=== PATIENT | male | born 1955 | race Caucasian/White ===

== ENCOUNTER 2019-10-09 02:12 | Inpatient (IN) ==
[2019-10-09] MEDS ORDERED: NS 0.9% 1000 ml BAG 1,000 ML IV ONE ×2 (02:22→03:06)
[2019-10-09] MEDS ORDERED: Heparin - STEMI 5,000 UNITS/ML 1 ml VIAL IV ONE ×2 (03:06→03:08)
[2019-10-09] MEDS ORDERED: nitroGLYCERIN DRIP 25,000 MCG in Premix IV 0 ML IV ONE (03:06)
[2019-10-09] MEDS ORDERED: nitroGLYCERIN DRIP 0 MCG/0 ML BTL ONE (03:09)
[2019-10-09 03:26] LABS: ABS Basophils 0.1 10^3/ul (0-0.2); ABS Lymphocytes 0.6 10^3/ul (1.0-4.8); ABS Monocytes 1.4 10^3/ul (0-0.8); Eosinophil % 0.1 %; Hematocrit 40 % (42-52); Hemoglobin 13.9 g/dL (14.0-18.0); Lymphocyte % 4.8 %; Mean Corpuscular HGB Conc 35 g/dL (31-36); Mean Corpuscular Hemoglobin 29 pg (27-31); Mean Corpuscular Volume 85 fL (80-94); Platelet Count 377 10^3/uL (150-450); Red Blood Count 4.77 10^6 /uL (4.18-5.48); Red Cell Distribution Width 13 % (10-15); White Blood Count 12.9 10^3/uL (3.5-10.8)
[2019-10-09] MEDS ORDERED: Heparin 2 UNITS/ML 1000 mls 0 ML IV ONE (03:30)
[2019-10-09] MEDS ORDERED: nitroGLYCERIN DRIP 25,000 MCG/250 ML BTL ONE (03:30)
[2019-10-09] MEDS ORDERED: VERAPAMIL 2.5 MG/ML 2 ML VIAL ** 5 mg/2 ml ONE (03:30)
[2019-10-09] MEDS ORDERED: Lidocaine 1% VIAL 10 MG/ML VIAL ONE (03:30)
[2019-10-09] MEDS ORDERED: Heparin 1,000 UNIT/ML CATH LAB 1,000 10 ml (10,000 UNITS) IV ONE (03:30)
[2019-10-09] MEDS ORDERED: Iohexol 350 (CONTRAST) 200 ML MDV IV ONE (03:31)
[2019-10-09 03:40] LABS: INR 1.49 (0.82-1.09)
[2019-10-09 03:42] LABS: Albumin 4.1 g/dL (3.2-5.2); Albumin/Globulin Ratio 1.1 (1-3); BUN/Creatinine Ratio 13.9 (8-20); C Reactive Protein 221.78 mg/L (<8.01); Calcium 9.4 mg/dL (8.6-10.3); EGFR African American 59.6 (>60); EGFR Non-African American 49.2 (>60); Globulin 3.8 g/dL (2-4); Potassium 3.7 mmol/L (3.5-5.0); Total Bilirubin 1.4 mg/dL (0.2-1.0); Total Protein 7.9 g/dL (6.4-8.9)
[2019-10-09] MEDS ORDERED: Morphine 10 MG/ML VIAL (1 ml) IV ONE (04:01)
[2019-10-09] MEDS ORDERED: Iodixanol (CONTRAST) 320 MG/ML 100 ML SDV IV ONE (04:12)
[2019-10-09] MEDS ORDERED: Morphine 4 MG/ML VIAL (1 ml) IV ONE (04:37)
[2019-10-09] MEDS ORDERED: NS 0.9% 1000 ml BAG 1,000 ML IV SCH (05:15)
[2019-10-09] MEDS ORDERED: Azithromycin 500 mg/250 ml NS 500 MG/250 ML BAG IVPB ONE (05:58)
[2019-10-09] MEDS ORDERED: cefTRIAXone 1 gm/50 mL NS BAG 1 GM/50 ML BAG IVPB SCH (06:00)
[2019-10-09] MEDS: Enoxaparin 30 MG/0.3 ML SYR(*) SUBCUT SCH (06:18)
[2019-10-09] MEDS: Morphine 2 MG/ML SYRINGE IV PRN ×3 (09:14→18:33)
[2019-10-09 10:16] LABS: Urine Appearance Clear; Urine Bilirubin Negative (Negative); Urine Blood Negative (Negative); Urine Color Yellow; Urine Glucose Negative (Negative); Urine Ketones Negative (Negative); Urine Nitrite Negative (Negative); Urine Protein Negative (Negative); Urine Specific Gravity 1.036 (1.010-1.030); Urine Urobilinogen Positive (Negative)
[2019-10-10] MEDS: Enoxaparin 30 MG/0.3 ML SYR(*) SUBCUT SCH (06:17)
[2019-10-10 07:29] LABS: BUN/Creatinine Ratio 17.7 (8-20); Calcium 8.9 mg/dL (8.6-10.3); EGFR African American 70.8 (>60); EGFR Non-African American 58.5 (>60)
[2019-10-10] MEDS ORDERED: Azithromycin IV(*) 250 MG in NS 0.9% 250 ml 250 ML IVPB SCH (08:00)
[2019-10-10 11:55] VITALS: BP 128/74
[2019-10-12 14:39] LABS: Mycoplasma pneumoniae IgG Ab Positive (Negative); Mycoplasma pneumoniae IgM Ab Negative (Negative)
== END 2019-10-10 17:30 | disposition home or self-care (01) | DRG 314 ==
LOC: ED 02:12 → MED 07:08
PROVIDERS: ADMIT Internal Medicine; ATTEND Internal Medicine

== ENCOUNTER 2019-10-12 11:42 | Inpatient (IN) ==
[2019-10-12] MEDS ORDERED: Diltiazem IV push/loading dose 5 MG/ML 5 ML vial (25 mg) ONE (12:08)
[2019-10-12 12:11] LABS: Hematocrit 40 % (42-52); Hemoglobin 13.8 g/dL (14.0-18.0); Mean Corpuscular HGB Conc 35 g/dL (31-36); Mean Corpuscular Hemoglobin 29 pg (27-31); Mean Corpuscular Volume 85 fL (80-94); Mean Platelet Volume 7.3 fL (7.4-10.4); Platelet Count 581 10^3/uL (150-450); Red Blood Count 4.72 10^6 /uL (4.18-5.48); Red Cell Distribution Width 13 % (10-15); White Blood Count 13.8 10^3/uL (3.5-10.8)
[2019-10-12] MEDS ORDERED: Diltiazem IV push/loading dose 5 MG/ML 5 ML vial (25 mg) IV SLOW PU ONE ×3 (12:11→12:19)
[2019-10-12 12:34] LABS: Troponin I 0.01 ng/mL (<0.03)
[2019-10-12 12:38] LABS: Albumin 3.9 g/dL (3.2-5.2); Calcium 9.4 mg/dL (8.6-10.3); Potassium 3.3 mmol/L (3.5-5.0); Total Bilirubin 0.6 mg/dL (0.2-1.0)
[2019-10-12 12:44] LABS: Albumin/Globulin Ratio 1.1 (1-3); BUN/Creatinine Ratio 21.3 (8-20); EGFR African American 54.7 (>60); EGFR Non-African American 45.2 (>60); Globulin 3.6 g/dL (2-4); Total Protein 7.5 g/dL (6.4-8.9)
[2019-10-12 12:53] LABS: ABS Basophils 0.1 10^3/ul (0-0.2); ABS Eosinophils 0.1 10^3/ul (0-0.6); ABS Lymphocytes 0.8 10^3/ul (1.0-4.8); ABS Monocytes 0.9 10^3/ul (0-0.8); Eosinophil % 0.6 %; Lymphocyte % 5.8 %
[2019-10-12] MEDS ORDERED: Diltiazem IV BAG D5W Premix 125 MG/125 ML BAG IV SCH (13:00)
[2019-10-12 13:05] LABS: T4, Total 6.91 mcg/dL (6.09-12.23)
[2019-10-12] MEDS ORDERED: Metoprolol Tartrate 5 mg VIAL 5 ml VIAL (1 mg/ml) IV ONE ×2 (13:08→13:22)
[2019-10-12 13:09] LABS: TSH (Thyroid Stimulating Horm) 1.64 mcIU/mL (0.34-5.60)
[2019-10-12] MEDS ORDERED: NS 0.9% 1000 ml BAG 1,000 ML IV ONE (13:09)
[2019-10-12] MEDS ORDERED: Neomycin/Polym/Bacit TOP OINT 15 GM TOPICAL ONE (13:16)
[2019-10-12 13:57] LABS: C Reactive Protein 101.89 mg/L (<8.01)
[2019-10-12] MEDS ORDERED: Labetalol IV 200 MG in NS 0.9% 250 ml 160 ML IV SCH (14:00)
[2019-10-12] MEDS ORDERED: Amiodarone 150 mg IVPREMIX 150 MG/100 ML BAG IV ONE (14:51)
[2019-10-12] MEDS ORDERED: Amiodarone 360 MG IVPREMIX 360 MG/200 ML BAG IV ONE (14:51)
[2019-10-12] MEDS ORDERED: Amiodarone IV 150 mg/3 ml VIAL IV PUSH ONE (14:51)
[2019-10-12 15:45] LABS: Erythrocyte Sed Rate 89 mm/Hr (0-19)
[2019-10-12] MEDS: Heparin 5000 UNITS/ML VIAL(*) 1 ml vial SUBCUT SCH ×2 (16:29→21:02)
[2019-10-12 18:32] LABS: Troponin I 0.09 ng/mL (<0.03)
[2019-10-12] MEDS: Amiodarone 360 MG IVPREMIX 360 MG/200 ML BAG IV SCH ×2 (21:00→23:53)
[2019-10-12] MEDS: CMCS: Simvastatin 10 mg TAB (NF) PO SCH (21:01)
[2019-10-13 01:04] LABS: Troponin I 0.12 ng/mL (<0.03)
[2019-10-13] MEDS: Heparin 5000 UNITS/ML VIAL(*) 1 ml vial SUBCUT SCH ×2 (05:10→13:29)
[2019-10-13 05:18] LABS: Hematocrit 36 % (42-52); Hemoglobin 12.5 g/dL (14.0-18.0); Mean Corpuscular HGB Conc 35 g/dL (31-36); Mean Corpuscular Hemoglobin 30 pg (27-31); Mean Corpuscular Volume 85 fL (80-94); Mean Platelet Volume 7.1 fL (7.4-10.4); Platelet Count 499 10^3/uL (150-450); Red Cell Distribution Width 13 % (10-15); White Blood Count 11.4 10^3/uL (3.5-10.8)
[2019-10-13 05:40] LABS: Anion Gap 8 mmol/L (2-11); BUN/Creatinine Ratio 17.4 (8-20); Blood Urea Nitrogen 23 mg/dL (6-24); CO2 Carbon Dioxide 24 mmol/L (22-32); Calcium 8.5 mg/dL (8.6-10.3); Chloride 106 mmol/L (101-111); EGFR African American 65.9 (>60); EGFR Non-African American 54.4 (>60); Glucose 106 mg/dL (70-100); Potassium 3.8 mmol/L (3.5-5.0); Sodium 138 mmol/L (135-145)
[2019-10-13 06:45] LABS: Troponin I 0.11 ng/mL (<0.03)
[2019-10-13] MEDS ORDERED: Azithromyxin PAK 250 mg TA(NF) PO SCH (09:00)
[2019-10-13] MEDS: Amiodarone 400 mg TAB PO SCH ×2 (11:59→22:30)
[2019-10-13] MEDS ORDERED: Metoprolol Tartrate 5 mg VIAL 5 ml VIAL (1 mg/ml) IV ONE (13:13)
[2019-10-13] MEDS: Enoxaparin 100 MG/ML SYR(*) SUBCUT SCH (18:09)
[2019-10-13] MEDS ORDERED: Amiodarone 400 mg TAB PO SCH (21:00)
[2019-10-13] MEDS: CMCS: Simvastatin 10 mg TAB (NF) PO SCH (22:30)
[2019-10-14] MEDS: Enoxaparin 100 MG/ML SYR(*) SUBCUT SCH ×2 (05:32→17:46)
[2019-10-14 06:23] LABS: BUN/Creatinine Ratio 16.9 (8-20); Calcium 8.6 mg/dL (8.6-10.3); EGFR Non-African American 55.4 (>60); Potassium 4.3 mmol/L (3.5-5.0)
[2019-10-14] MEDS: Amiodarone 400 mg TAB PO SCH ×2 (08:05→20:52)
[2019-10-14] MEDS: CMCS: Simvastatin 10 mg TAB (NF) PO SCH (20:52)
[2019-10-15] MEDS: Enoxaparin 100 MG/ML SYR(*) SUBCUT SCH (05:26)
[2019-10-15] MEDS: Amiodarone 400 mg TAB PO SCH (08:07)
[2019-10-15] MEDS ORDERED: Pneumococcal Vac 23-Polyvalent IM ONE (09:00)
[2019-10-15 16:05] VITALS: BP 132/90
== END 2019-10-15 17:15 | disposition home or self-care (01) | DRG 309 ==
LOC: ED 11:42 → ICU 14:44 → MEDTELE 10-14 14:11
PROVIDERS: ADMIT Internal Medicine Critical Care Medicine; ATTEND Internal Medicine